=== PATIENT | male | born 1995 | race Caucasian/White ===

== ENCOUNTER 2024-01-21 23:50 | Emergency (ER) | payer SELFPAY ==
[~2024-01-21] VITALS: Ht 175.3 cm; Wt 116.0 kg
[2024-01-21 23:54] VITALS: O2SAT 100
[2024-01-22] MEDS: AMOXICILLIN/POTASSIUM CLAVULANATE 875/125MG TAB PO ONE (00:32)
[2024-01-22] MEDS ORDERED: AMOX1TAB16 MT (01:04)
[2024-01-22 02:20] VITALS: BP 138/94; PULSE 68; RESP 16; TEMP 98.5
[2024-01-22 02:52] LABS: HEPATITIS B SURFACE ANTIGEN NEGATIVE (Negative)
[2024-01-22 03:13] LABS: HEPATITIS C AB NON REACTIVE (Neg) (Negative)
== END 2024-01-22 02:20 | disposition home or self-care (01) ==
LOC: ER 23:50
DX: S41.151A Open bite of right upper arm, initial encounter (principal); W50.3XXA Accidental bite by another person, initial encounter; Y93.89 Activity, other specified; Y92.89 Other specified places as the place of occurrence of the external cause; Y99.8 Other external cause status
CPT/HCPCS: 36415; 86705; 87340; 99283